=== PATIENT | male | born 1955 | race Caucasian/White ===

== ENCOUNTER → 2020-03-19 | Outpatient (CLI) | payer MEDICARE, SELFPAY ==
[~2020-03-19] MED LIST: ACID CONTROLLER20 MG PO; ASPIRIN EC81 MG PO; CARBAMAZEPINE200 M1 PO; CLARITIN10 M2 PO; COMBIVENT RESPIM4 GM INH; HUMULIN 70100 UNIT/2 SQ; HUMULIN R100 UNIT/1 INJ; HYDRALAZINE HCL25 MG PO; HYGROTON TAB 2525 MG PO; KLONOPIN1 MG PO; LYRICA100 MG PO; MELATONIN5 MG PO; MYSOLINE TAB 5050 MG PO; NORCO 10-325 T1 EACH PO; NORVASC5 MG PO; ONGLYZA5 MG PO; PRAVACHOL40 MG PO; PROZAC20 MG PO; SINGULAIR10 MG PO; SYMBICORT 16010.2 GM INH; TENORMIN 50 MG50 MG PO; VITAMIN D250 MCG PO
== END ==
LOC: HEART 5 13:41
DX: R06.00 Dyspnea, unspecified (principal); R94.2 Abnormal results of pulmonary function studies; F17.210 Nicotine dependence, cigarettes, uncomplicated
CPT/HCPCS: 94060